=== PATIENT | male | born 1985 | race Caucasian/White ===

== ENCOUNTER 2018-04-13 19:11 | Emergency (ER) | payer OTHER ==
[~2018-04-13] VITALS: Ht 177.8 cm; Wt 114.3 kg
[2018-04-13] MEDS ORDERED: OMEPRAZOLE 20 M20 M1 PO (19:25)
[2018-04-13] MEDS ORDERED: CLEOCIN HCL150 M1 PO (19:55)
[2018-04-13] MEDS ORDERED: NORCO 5-325 TA1 EAC1 PO (19:55)
[2018-04-13 20:22] VITALS: BP 148/100
== END 2018-04-13 20:23 | disposition home or self-care (01) ==
LOC: M.ERS 19:11
DX: K02.9 Dental caries, unspecified (principal); I10 Essential (primary) hypertension; F17.210 Nicotine dependence, cigarettes, uncomplicated; Z88.1 Allergy status to other antibiotic agents; Z88.0 Allergy status to penicillin

== ENCOUNTER 2018-05-10 14:50 | Emergency (ER) | payer OTHER ==
[~2018-05-10] VITALS: Ht 177.8 cm; Wt 113.4 kg
[~2018-05-10 14:50] MED LIST: CLEOCIN HCL150 M1 PO; NORCO 5-325 TA1 EAC1 PO; OMEPRAZOLE 20 M20 M1 PO
[2018-05-10] MEDS ORDERED: CIPROFLOXIN HC2.5 M1 OTIC (15:21)
[2018-05-10] MEDS ORDERED: NORCO 5-325 TA1 EACH PO (15:21)
[2018-05-10] MEDS ORDERED: KEFLEX500 M1 PO (15:21)
[2018-05-10 15:44] VITALS: BP 140/100
== END 2018-05-10 15:45 | disposition home or self-care (01) ==
LOC: M.ERS 14:50
DX: H66.91 Otitis media, unspecified, right ear (principal); H60.91 Unspecified otitis externa, right ear; I10 Essential (primary) hypertension; Z88.0 Allergy status to penicillin; Z88.1 Allergy status to other antibiotic agents

== ENCOUNTER 2018-10-16 09:04 | Emergency (ER) | payer OTHER ==
[~2018-10-16] VITALS: Ht 177.8 cm; Wt 113.4 kg
[~2018-10-16 09:04] MED LIST changes: +CIPROFLOXIN HC2.5 M1 OTIC; +KEFLEX500 M1 PO; +NORCO 5-325 TA1 EACH PO
[2018-10-16] MEDS ORDERED: PREDNISONE 20 M20 M1 PO (09:23)
[2018-10-16] MEDS ORDERED: FLEXERIL PO (09:23)
[2018-10-16] MEDS ORDERED: ULTRAM 50MG TAB50 MG PO (09:23)
[2018-10-16 09:32] VITALS: BP 141/87
== END 2018-10-16 09:33 | disposition home or self-care (01) ==
LOC: M.ERS 09:04
DX: R20.2 Paresthesia of skin (principal)

== ENCOUNTER → 2018-12-30 | Emergency (ER) | payer OTHER ==
[~2018-12-30] VITALS: Ht 177.8 cm; Wt 113.4 kg
[~2018-12-30] MED LIST changes: +FLEXERIL PO; +PREDNISONE 20 M20 M1 PO; +ULTRAM 50MG TAB50 MG PO
== END ==
LOC: M.ERS 18:59
DX: Z53.21 Procedure and treatment not carried out due to patient leaving prior to being seen by health care provider (principal)

== ENCOUNTER 2019-05-12 19:31 | Emergency (ER) | payer OTHER ==
[~2019-05-12] VITALS: Ht 177.8 cm; Wt 114.3 kg
[2019-05-12 19:37] VITALS: BP 145/85
[2019-05-12] MEDS ORDERED: NORCO 5-325 TA1 EAC1 PO (20:01)
[2019-05-12] MEDS ORDERED: CLEOCIN HCL150 MG PO (20:01)
== END 2019-05-12 20:26 | disposition home or self-care (01) ==
LOC: M.ERS 19:31
DX: L03.116 Cellulitis of left lower limb (principal); I10 Essential (primary) hypertension; Z88.1 Allergy status to other antibiotic agents; Z88.0 Allergy status to penicillin